=== PATIENT | male | born 1950 | race Caucasian/White ===

== ENCOUNTER → 2016-11-30 | Emergency (ER) | payer OTHER ==
[~2016-11-30] VITALS: Ht 182.9 cm; Wt 99.8 kg
[~2016-11-30] MED LIST: ALLOPURINOL100 M1 ORAL; AMIODARONE HCL400 M1 ORAL; ASPIR 8181 MG ORAL; ATORVASTATIN CA40 MG ORAL; BISACODYL5 MG RECTAL; COREG3.125 MG ORAL; ELIQUIS2.5 MG PO; FERROUS SULFAT325 MG ORAL; LEVOTHYROXINE125 MCG ORAL; NS 250 ML IVPB ONE; ROXICODONE15 MG ORAL; VOL-CARE RX TA1 EACH PO; ZINC50 MG ORAL; ZOFRAN4 M3 ORAL
--- NOTE | 2016-11-30 04:03 | Emergency Room Report ---
History of Present Illness General Chief Complaint: Abdominal Pain Source: Patient Present Illness HPI This is a 66-year-old male with a history of renal failure hemodialysis. His dialysis days are Saturday, , and Saturday. He also has cardiac history with atrial fibrillation. He has an AICD and is on Elliquis. He presents with chief complaint of right lower quadrant pain and diarrhea for one day. No fever or chills. No nausea no vomiting. Nothing made it better nothing made it worse. Has never had this problem before. Pain is 5/10. Allergies: Coded Allergies: No Known Allergies (Unverified , 11/30/16) Patient History Past Medical History: see triage record, old chart reviewed Past Surgical History: other Pertinent Family History: none Social History: Denies: smoking Immunizations: other Reviewed Nursing Documentation: PMH: Agreed, PSxH: Agreed Nursing Documentation-PMH Hx Hypertension: Yes - CHF Hx Dialysis: Yes - CKD, DIALYSIS T, TH, SAT Review of Systems Eye: Denies: blurred vision, eye pain ENT: Denies: ear pain, nose congestion, throat swelling Respiratory: Denies: cough, shortness of breath Cardiovascular: Denies: chest pain, palpitations Gastrointestinal: Reports: abdominal pain, diarrhea, Denies: nausea, vomiting Musculoskeletal: Denies: back pain, joint pain Skin: Denies: rash Neurological: Denies: headache, numbness Endocrine: Denies: increased thirst, increased urine Hematologic/Lymphatic: Denies: easy bruising All Other Systems: negative except mentioned in HPI Physical Exam Vital Signs Date Time Temp Pulse Resp B/P Pulse Ox O2 Delivery O2 Flow Rate FiO2 11/30/16 03:44 98.1 70 18 92/65 95 Room Air vitals with hypotension Sp02 EP Interpretation: reviewed, normal General Appearance: well appearing, no apparent distress, alert Head: normocephalic, atraumatic Eyes: bilateral eye EOMI, bilateral eye PERRL ENT: hearing grossly normal, normal pharynx Neck: full range of motion, supple, no meningismus Respiratory: chest non-tender, lungs clear, normal breath sounds Cardiovascular #1: regular rate, rhythm, no murmur Gastrointestinal: normal bowel sounds, no mass, no organomegaly, no bruit, non- distended, tenderness - Left lower quadrant Musculoskeletal: back normal, normal range of motion, swelling - legs with 1-2 + edema. chronic Neurologic: alert, oriented x3 Psychiatric: mood/affect normal Skin: warm/dry Medical Decision Making Diagnostic Impression: Primary Impression: Abdominal pain of unknown etiology Additional Impressions: Diarrhea in adult patient ESRD (end stage renal disease) on dialysis Anemia, chronic renal failure Qualified Codes: N18.9 - Chronic kidney disease, unspecified; D63.1 - Anemia in chronic kidney disease Kidney stone ER Course Patient with pain and diarrhea. He has no diarrhea here. Pain is well- controlled now. Tolerating by mouth. He does have nonobstructing kidney stone. No evidence of infection. No hyperkalemia. [facility]'ll [facility]. No evidence of acute abdomen. Last Vital Signs Date Time Temp Pulse Resp B/P Pulse Ox O2 Delivery O2 Flow Rate FiO2 11/30/16 03:44 98.1 70 18 92/65 95 Room Air Status: improved Disposition: XFER SNF Condition: Stable Patient Instructions: Abdominal Pain, Adult Additional Instructions: Followup with your Dr. in one to 2 days. Return if symptom worsen. NAYELI GOLDEN M.D. Nov 30, 2016 04:03
[2016-11-30 04:21] VITALS: BP 92/65
[2016-11-30 04:29] LABS: BASOPHILS % (AUTO) 1.1 % (0.0-2.0); EOSINOPHILS % (AUTO) 2.5 % (0.0-3.0); MEAN CORPUSCULAR HEMOGLOBIN 28.7 PG (27.0-31.0); MEAN CORPUSCULAR HGB CONC 29.8 G/DL (32.0-36.0); MEAN CORPUSCULAR VOLUME 96 FL (80-99); MEAN PLATELET VOLUME 7.3 FL (6.5-10.1); MONOCYTES % (AUTO) 7.6 % (1.0-10.0); NEUTROPHILS % (AUTO) 65.8 % (45.0-75.0); PLATELET COUNT 108 K/UL (150-450); RED BLOOD COUNT 3.77 M/UL (4.70-6.10); RED CELL DISTRIBUTION WIDTH 18.1 % (11.6-14.8)
[2016-11-30 04:40] VITALS: BP 101/68
[2016-11-30 04:53] LABS: ALBUMIN/GLOBULIN RATIO 1.3 (1.0-2.7); CALCIUM 9.1 mg/dL (8.6-10.2); CREATININE 3.5 mg/dL (0.7-1.2); GLOMERULAR FILTRATION RATE 17.6 mL/min (>60); POTASSIUM 4.6 mEQ/L (3.4-4.9)
[2016-11-30 05:51] VITALS: BP 96/68
[2016-11-30 06:28] LABS: BILIRUBIN,DIRECT 0.5 mg/dL (0.1-0.3)
[2016-11-30 08:10] VITALS: BP 95/67
--- NOTE | 2016-11-30 16:17 | Diagnostic Imaging Report ---
Indication: Abdominal pain Technique: Spiral acquisitions obtained through the abdomen and pelvis. No oral contrast utilized, per emergency room physician request. No IV contrast utilized, per referring physician request. Multiplanar reconstructions were generated. Total dose length product 1179 mGycm. CTDIvol(s) 19 mGy. Dose reduction achieved using automated exposure control Comparison: None Findings: There is diffuse edema of the subcutaneous and mesenteric fat. There is trace pleural fluid on the right. There is trace free intraperitoneal fluid seen over the dome of the liver. There is evidence of prior gastric bypass surgery. The appendix is normal. There is colonic diverticulosis. No evidence of acute diverticulitis. There is a left inguinal hernia which contains fat and fluid. No small bowel distention. No free intraperitoneal air. There is a tiny umbilical hernia which contains fat and fluid. Lack of IV contrast limits assessment of the solid organs. The gallbladder is surgically absent. No focal liver lesions. The pancreas is atrophic. The spleen, adrenals are unremarkable. The right kidney demonstrates somewhat ill-defined lower pole calyceal calculi, measuring up to 13 mm in diameter. Scattered faint calculi are seen within the left renal collecting system and within the renal pelvis. There is no hydronephrosis or hydroureter. No definite renal mass or cyst. The ureters and bladder are unremarkable. No pelvic mass or adenopathy. The lung bases demonstrate diffuse groundglass opacity throughout the lungs but especially dependently. The heart is enlarged. There is a pacemaker. There are coronary artery calcifications The bones demonstrate fairly extensive degenerative spondylosis change. The appear osteoporotic. There are extensive degenerative changes of the bilateral hips. There is a questionable osteolytic lesion of the proximal right femur. This measures 2.5 cm in diameter. Impression: Anasarca, with diffuse edema of the subcutaneous fat and mesenteric fat, trace ascites, trace pleural fluid Bilateral pulmonary parenchymal groundglass opacity diffusely, probably pulmonary edema related to the above Marked cardiomegaly Evidence of prior gastric bypass surgery and prior cholecystectomy Nonobstructive bilateral renal calculi, fairly extensive Left inguinal hernia, containing fat and fluid, no bowel Diverticulosis. No evidence of diverticulitis Other findings as noted, including tiny umbilical hernia with fat and fluid, atrophic pancreas, pacemaker, coronary artery calcifications, degenerative spondylosis, degenerative changes of bilateral hips The above findings are in agreement with the preliminary interpretation provided overnight by [facility] Questionable 2.5 cm osteolytic lesion of the proximal right femur, versus focal area of advanced osteoporotic change. Consider further evaluation with bone scan or MRI. This was not described on the preliminary report. This finding was reported to Dr. Fernandez in the emergency room at the time of interpretation. The CT scanner at [facility] is accredited by the [employer] and the scans are performed using protocols designed to limit radiation exposure to as low as reasonably achievable to attain images of sufficient resolution adequate for diagnostic evaluation.
== END | disposition home or self-care (01) ==
LOC: EDUNIT# 03:42 → EDBD 03:48 → EMR 04:05
DX: R10.31 Right lower quadrant pain (principal); R19.7 Diarrhea, unspecified; N18.6 End stage renal disease; Z99.2 Dependence on renal dialysis; N20.0 Calculus of kidney; I50.9 Heart failure, unspecified; I48.91 Unspecified atrial fibrillation; Z79.01 Long term (current) use of anticoagulants; Z95.810 Presence of automatic (implantable) cardiac defibrillator; K40.90 Unilateral inguinal hernia, without obstruction or gangrene, not specified as recurrent; K57.30 Diverticulosis of large intestine without perforation or abscess without bleeding; Z90.49 Acquired absence of other specified parts of digestive tract; K42.9 Umbilical hernia without obstruction or gangrene
CPT/HCPCS: 36415; 74176; 80053; 82248; 83690; 85025; 96360